=== PATIENT | female | born 1995 | race Two or more races ===

== ENCOUNTER 2023-04-25 15:03 | Emergency (ER) | payer MEDICAID ==
[~2023-04-25] VITALS: Ht 165.1 cm; Wt 120.0 kg
[~2023-04-25 15:03] MED LIST: PREN-145 OR
[2023-04-25 16:50] VITALS: BP 127/72; PULSE 90; RESP 18; O2SAT 98
[2023-04-25] MEDS ORDERED: METH-1182 PO (16:51)
[2023-04-25] MEDS ORDERED: IBUP-1456 PO (16:51)
== END 2023-04-25 16:59 | disposition home or self-care (01) ==
LOC: ER 15:03
DX: S16.1XXA Strain of muscle, fascia and tendon at neck level, initial encounter (principal); Z79.899 Other long term (current) drug therapy; V49.9XXA Car occupant (driver) (passenger) injured in unspecified traffic accident, initial encounter; Y93.I9 Activity, other involving external motion; Y92.89 Other specified places as the place of occurrence of the external cause; Y99.8 Other external cause status
CPT/HCPCS: 72040